=== PATIENT | male | born 1970 | race Caucasian/White ===

== ENCOUNTER 2024-06-04 08:49 | Emergency (ER) | payer MEDICAID ==
[~2024-06-04] VITALS: Ht 172.7 cm; Wt 102.0 kg
[2024-06-04 08:51] VITALS: O2SAT 100
[2024-06-04 09:05] VITALS: BP 151/82; PULSE 75; RESP 18; TEMP 36.9; O2SAT 98
[2024-06-04] MEDS ORDERED: AMOX1TAB16 MT (09:14)
[2024-06-04] MEDS: AMOXICILLIN/POTASSIUM CLAVULANATE 875/125MG TAB PO ONE (09:25)
[2024-06-04] MEDS: TETANUS, DIPHTHERIA, PERTUSSIS VAC/PF 0.5ML (>10YR OLD) IM ONE (09:25)
== END 2024-06-04 09:36 | disposition home or self-care (01) ==
LOC: ER 08:49
DX: S91.331A Puncture wound without foreign body, right foot, initial encounter (principal); I10 Essential (primary) hypertension; E11.9 Type 2 diabetes mellitus without complications; W45.0XXA Nail entering through skin, initial encounter; Y93.89 Activity, other specified; Y92.89 Other specified places as the place of occurrence of the external cause; Y99.8 Other external cause status
CPT/HCPCS: 90471; 90715; 99283